=== PATIENT | male | born 1960 | race Caucasian/White ===

== ENCOUNTER 2016-05-07 14:42 | Outpatient (CLI) | payer OTHER ==
[2015-04-06 10:40] VITALS: BP 146/83
== END 2016-05-07 14:43 ==
LOC: LAB 14:42
PROVIDERS: ATTEND Family Medicine
DX: Z51.81 Encounter for therapeutic drug level monitoring (principal); Z79.01 Long term (current) use of anticoagulants
CPT/HCPCS: 36415; 85610

== ENCOUNTER 2016-05-20 12:50 | Outpatient (CLI) | payer OTHER ==
[2015-04-06 10:40] VITALS: BP 146/83
== END 2016-05-20 12:52 ==
LOC: CARD 12:50
PROVIDERS: ATTEND Internal Medicine Cardiovascular Disease
DX: I42.0 Dilated cardiomyopathy (principal)

== ENCOUNTER 2016-10-08 14:30 | Outpatient (CLI) | payer OTHER ==
[2015-04-06 10:40] VITALS: BP 146/83
== END 2016-10-08 14:40 ==
LOC: LAB 14:30
PROVIDERS: ATTEND Family Medicine
DX: I26.99 Other pulmonary embolism without acute cor pulmonale (principal)
CPT/HCPCS: 36415; 85610

== ENCOUNTER 2017-01-14 14:30 | Outpatient (CLI) | payer OTHER ==
[2015-04-06 10:40] VITALS: BP 146/83
== END 2017-01-14 14:32 ==
LOC: LAB 14:30
PROVIDERS: ATTEND Family Medicine
DX: I26.99 Other pulmonary embolism without acute cor pulmonale (principal)
CPT/HCPCS: 36415; 85610

== ENCOUNTER 2017-03-20 07:27 | Outpatient (CLI) | payer OTHER ==
[2015-04-06 10:40] VITALS: BP 146/83
[2017-03-20 08:29] LABS: eGFR (African) > 60; eGFR (Non-African) > 60
== END 2017-03-20 07:30 ==
LOC: LAB 07:27
PROVIDERS: ATTEND Family Medicine
DX: I82.409 Acute embolism and thrombosis of unspecified deep veins of unspecified lower extremity (principal)
CPT/HCPCS: 36415; 80053; 80061; 85610

== ENCOUNTER 2017-05-21 14:34 | Outpatient (CLI) | payer OTHER ==
[2015-04-06 10:40] VITALS: BP 146/83
== END 2017-05-21 14:35 ==
LOC: LAB 14:34
PROVIDERS: ATTEND Family Medicine
DX: I26.99 Other pulmonary embolism without acute cor pulmonale (principal)
CPT/HCPCS: 36415; 85610

== ENCOUNTER 2017-09-16 14:33 | Outpatient (CLI) | payer OTHER ==
[2015-04-06 10:40] VITALS: BP 146/83
== END 2017-09-16 14:34 ==
LOC: LAB 14:33
PROVIDERS: ATTEND Family Medicine
DX: I26.99 Other pulmonary embolism without acute cor pulmonale (principal)
CPT/HCPCS: 36415; 85610

== ENCOUNTER 2017-09-29 13:14 | Outpatient (CLI) | payer OTHER ==
[2015-04-06 10:40] VITALS: BP 146/83
[2017-09-29 13:35] LABS: MEAN CORPUSCULAR HEMOGLOBIN 34.8 pg (28.0-34.0); MEAN CORPUSCULAR VOLUME 99.1 fl (80.0-100.0)
== END 2017-09-29 13:16 ==
LOC: LAB 13:14
PROVIDERS: ATTEND Family Medicine
DX: R31.0 Gross hematuria (principal); I26.99 Other pulmonary embolism without acute cor pulmonale
CPT/HCPCS: 36415; 85027; 85610; 87086

== ENCOUNTER 2018-01-21 14:59 | Outpatient (CLI) | payer OTHER ==
[2015-04-06 10:40] VITALS: BP 146/83
== END 2018-01-21 15:00 ==
LOC: LAB 14:59
PROVIDERS: ATTEND Family Medicine
DX: I26.99 Other pulmonary embolism without acute cor pulmonale (principal)
CPT/HCPCS: 36415; 85610

== ENCOUNTER 2018-05-06 14:57 | Outpatient (CLI) | payer OTHER ==
[2015-04-06 10:40] VITALS: BP 146/83
== END 2018-05-06 15:00 ==
LOC: LAB 14:57
PROVIDERS: ATTEND Family Medicine
DX: I26.99 Other pulmonary embolism without acute cor pulmonale (principal)
CPT/HCPCS: 36415; 85610

== ENCOUNTER 2018-05-21 17:31 | Emergency (ER) | payer OTHER ==
--- NOTE | 2018-05-21 17:34 | ED Physician Documentation ---
General Adult - HISTORIAN Historian: patient - HPI Stated Complaint: L leg laceration Chief Complaint: General Adult Onset: minutes Timing: still present Further Comments: yes (Pt is a 58 yo male with a laceration to his L leg. Pt was moving a wood splitter that had a kickstand, and he hit the kickstand against his L leg.) - ROS CONST: no problems EYES/ENT: none CVS/RESP: none GI/: none MS/SKIN/LYMPH: other (laceration L leg) - PAST HX Past History: other (DM, HTN, LE edema) Allergies/Adverse Reactions: Allergies Allergy/AdvReac Type Severity Reaction Status Date / Time No Known Drug Allergies Allergy Verified 05/21/18 18:11 - SOCIAL HX Smoking History: chew - FAMILY HX Family History: No - VITAL SIGNS Vital Signs: Vital Signs Temp Pulse Resp BP Pulse Ox 146/83 04/06/15 10:20 - REVIEWED ASSESSMENTS Nursing Assessment Reviewed: Yes Vitals Reviewed: Yes Procedures Wound Location: lower extremity (L ant. leg) Wound Length: 4 cm Wound's Depth, Shape: superficial (very superficial) Wound Explored: clean Irrigated w/ Saline (ccs): 30 Betadine Prep?: Yes Wound Debrided: minimal Wound Repaired With: steri-strips, Dermabond Progress - Progress Progress: Tdap 0.5 ml IM General Adult Physical Exam - PHYSICAL EXAM GENERAL APPEARANCE: no distress EENT: pharynx normal NECK: normal inspection, supple RESPIRATORY: no resp distress, chest non-tender, breath sounds normal CVS: reg rate & rhythm, heart sounds normal BACK: normal inspection SKIN: other (superficial V shaped laceration, 4 cm on edematous L leg) EXTREMITIES: edema, other (superficial V shaped laceration, 4 cm on edematous L leg) NEURO: oriented X3, motor nml, sensation nml Discharge Clincal Impression: L leg laceration Referrals: Og Dey MD [Primary Care Provider] - Condition: Stable Disposition: 01 HOME, SELF-CARE Decision to Admit: NO Decision Time: 18:15
[2018-05-21 18:10] VITALS: BP 134/78
[2018-05-21] MEDS ORDERED: DIPH,PERTUSS(ACELL),TET VAC/PF 0.5 ML DISP.SYRIN IM ONE (18:11)
== END 2018-05-21 18:39 | disposition home or self-care (01) ==
LOC: ED 17:31
DX: S81.812A Laceration without foreign body, left lower leg, initial encounter (principal); W22.8XXA Striking against or struck by other objects, initial encounter; Y93.89 Activity, other specified; Y92.9 Unspecified place or not applicable
CPT/HCPCS: 12002; 90471; 90715; 99282; 99283

== ENCOUNTER 2018-07-23 07:56 | Outpatient (CLI) | payer OTHER ==
[2018-07-23 09:28] LABS: eGFR (Non-African) > 60
== END 2018-07-23 08:05 ==
LOC: LAB 07:56
PROVIDERS: ATTEND Family Medicine
DX: I26.99 Other pulmonary embolism without acute cor pulmonale (principal); E11.9 Type 2 diabetes mellitus without complications
CPT/HCPCS: 36415; 80053; 80061; 82043; 83036; 85610